=== PATIENT | female | born 1930 | race Caucasian/White ===

== ENCOUNTER 2016-04-29 02:13 | Inpatient (IN) | payer MEDICARE, MEDICAID ==
[2016-04-29 02:55] VITALS: BP 151/75
[2016-04-29] MEDS: D5-0.9%NS 1,000 ML IV SCH (03:53)
[2016-04-29] MEDS ORDERED: Morphine Sulfate 2 mg/mL 1mL Syr IVP PRN (03:54)
[2016-04-29 04:05] LABS: % BASOPHILS 0.8 % (0.0-2.0); % EOSINOPHILS 7.2 % (0.0-5.0); % LYMPHOCYTES 41.2 % (20.0-50.0); % MONOCYTES 13.3 % (2.0-10.0); % NEUTROPHILS 37.5 % (40.0-80.0); HEMATOCRIT 33.1 % (35.0-45.0); HEMOGLOBIN 11.4 gm/dL (11.7-16.1); MEAN CORPUSCULAR HGB CONC 34.4 pg (28.0-36.0); MEAN PLATELET VOLUME 7.3 fl; PLATELET COUNT 193 Th/cmm (150-400); RED BLOOD COUNT 3.68 Mil/cmm (3.80-5.20); RED CELL DISTRIBUTION WIDTH 11.1 % (11.5-20.0); WHITE BLOOD COUNT 5.3 Th/cmm (4.8-10.8)
[2016-04-29 04:36] LABS: INR 1.1 (0.5-1.4)
[2016-04-29 05:01] LABS: ALB/GLOB RATIO 1.1 (1.0-1.8); ALKALINE PHOSPHATASE 97 U/L (34-104); BUN - UREA NITROGEN 6 mg/dL (7-25); CALCIUM SERUM 8.9 mg/dL (8.6-10.3); CARBON DIOXIDE 22.8 mEq/L (21.0-31.0); CHLORIDE 89 mEq/L (98-107); CREATININE - SERUM 0.5 mg/dL (0.6-1.2); GLUCOSE 94 mg/dL (70-105); SGOT 17 U/L (13-39); SGPT/ALT 7 U/L (7-52)
[2016-04-29 05:51] LABS: POTASSIUM SERUM 2.8 mEq/L (3.5-5.1); SODIUM SERUM 118 mEq/L (136-145)
[2016-04-29] MEDS ORDERED: SODIUM CHLORIDE 0.9% IV SCH ×2 (07:30→13:30)
[2016-04-29] MEDS ORDERED: LIDOCAINE IV SCH ×2 (07:30→13:30)
[2016-04-29] MEDS ORDERED: POTASSIUM CHLORIDE IV SCH ×2 (07:30→13:30)
--- NOTE | 2016-04-29 09:58 | Diagnostic Imaging Report ---
Portable chest x-ray HISTORY: Cough, preoperative The heart is enlarged. Atherosclerotic calcification seen in the aorta. A linear density seen in the right lung base that may be associated scarring or subsegmental atelectasis. No other acute focal process IMPRESSION: 1. Cardiomegaly with atherosclerotic vascular changes 2. Faint linear density right lung base that may be associated with scarring or subsegmental atelectasis.
[2016-04-29 20:12] LABS: ANION GAP 5.6 (7.0-16.0); BUN - UREA NITROGEN 8 mg/dL (7-25); CALCIUM SERUM 8.6 mg/dL (8.6-10.3); CARBON DIOXIDE 22.5 mEq/L (21.0-31.0); CHLORIDE 95 mEq/L (98-107); CREATININE - SERUM 0.8 mg/dL (0.6-1.2); GLUCOSE 108 mg/dL (70-105); POTASSIUM SERUM 4.1 mEq/L (3.5-5.1)
[2016-04-29 20:23] LABS: SODIUM SERUM 119 mEq/L (136-145)
[2016-04-29] MEDS ORDERED: MAG SULFATE IV ONE (22:09)
--- NOTE | 2016-04-30 00:17 | Consultation ---
This patient is seen on courtesy of Dr. Shana Davalos as the patient is coming with the cardiac problem and hypertension and hypertensive heart disease. According to history obtained from the patient's daughter at the bedside that the patient has been having episodes of nausea and vomiting for almost a week. It got worse over last few couple of days and on the day of admission. On the day of admission, she was very tired, unable to walk much. As she was getting worse, so brought to the Emergency Room. She says that she has been having nausea and vomiting off and on. There was no blood, no bile in the vomitus. The patient has lost appetite and not eating at all because afraid of getting nausea and vomiting again. She went to [facility] Emergency Room, there, workups was that her electrolyte disorder consistent of hyponatremia and hypokalemia. That is why, the patient is being transferred and admitted here. The patient denies any dysuria or hematuria and no diarrhea, no fever, chills or rigor or any other headache or dizziness, but has been having some dry cough off and on. PAST HISTORY: History of the hypertension, dyslipidemia, cardiomegaly, history of CHF and anemia. PERSONAL HISTORY: She is , nonsmoker, nonalcoholic, no drug abuse. ALLERGIES: None known. MEDICATIONS: Reviewed. At the moment, her home meds since are on hold most of the time because of her condition and electrolyte disorders. PHYSICAL EXAMINATION: GENERAL: This is female who is an 85-year-old Bulgarian-speaking, not in acute distress. VITAL SIGNS: Stable and her temperature is normal, her pulse is 75, respirations is 18, blood pressure 151/75, earlier blood pressure was 110/58, O2 sat on room air is 94%. HEENT: Normal. NECK: Supple, JVP is flat, no lymphadenopathy. CHEST: Equal bilaterally. No chest wall tenderness. LUNGS: Clinically clear. CARDIOVASCULAR: PMI not palpable. Heart sounds are S1 is loud, S2 is loud. There is a systolic ejection murmur, which is 2-3/6 in the aortic area conducting towards the carotid, towards the apex. No rub is appreciated. ABDOMEN: Soft, there is tenderness present in the epigastric area. Bowel sounds are present. CENTRAL NERVOUS SYSTEM: Grossly normal. EXTREMITIES: No edema, no cyanosis, no clubbing. Pedal pulsations are equal bilaterally. IMPRESSION AND PLAN: Nausea, vomiting and the etiology undetermined at this time. Electrolyte disorder especially hyponatremia and hypokalemia most likely secondary to nausea, vomiting and taking only water, but to rule out any other underlying endocrinological disorder. Other medical problems are hypertension, which is well controlled and now is trying to get uncontrolled and her blood pressure is slightly increasing, has a history of a dyslipidemia, cardiomegaly, CHF, possible systolic as well as diastolic dysfunction, to be evaluated. Cardiac murmur suggestive of aortic as well as mitral valve disorder to be evaluated. Other medical problem as per chart. From cardiac point of view, I agree to do echocardiogram and I also suggest that we should hold Lasix, also lisinopril as the patient has dry cough, might be secondary to the lisinopril as is Mango inhibitor. I agree to hold other meds. Continue with the correction on the electrolytes and correction of the fluid balance. Check serum cortisone and TSH and also the electrolytes in the morning. Occasional correction of the hyponatremia and further workup and management as needed and from cardiac point of view, I will adjust the medications as needed. Thank you very much, Dr. Mullins, for your kind referral and I will follow along with you during her acute cardiac problem. JOB# [id number] NIELS
--- NOTE | 2016-04-30 02:47 | History & Physical ---
CHIEF COMPLAINT: Vomiting. HISTORY OF PRESENT ILLNESS: The patient is an 85-year-old female who has been transferred from [facility]. The patient had presented to [facility] for 2 weeks intermittent but not daily, nonbilious vomiting. On days she vomits, she vomits 3-4 times per day. The patient has poor appetite and generalized weakness. The patient also has dry cough and wheezing for 3 months, but no runny nose, nasal congestion, sore throat, ear pain, fever, chills, diarrhea, constipation, chest pain or shortness of breath. In addition to 2 weeks of intermittent nausea and vomiting, she has also had intermittent upper abdominal pain. No recent dysuria, hematuria, increased frequency, urgency or other complaints. PAST MEDICAL HISTORY: Hypertension, hyperlipidemia, cardiomegaly, CHF, anemia. PAST SURGICAL HISTORY: Negative. SOCIAL HISTORY: No reports of smoking, drinking or IV drug use. MEDICATIONS: See medication reconciliation form. ALLERGIES: GUAIFENESIN. PHYSICAL EXAMINATION: GENERAL: The patient is awake, alert, nontoxic in appearance. VITAL SIGNS: On admission are temperature 98.3, pulse of 75, blood pressure 151/75, respiratory rate 18, O2 sat 94% on room air. TopofForm HEENT: Normocephalic, atraumatic. Extraocular movements are intact. Oropharynx is clear. NECK: Supple. No thyromegaly. No lymphadenopathy. RESPIRATORY: Clear. No wheezing or rhonchi. CARDIOVASCULAR: S1 and S2. No murmurs or gallops. GASTROINTESTINAL: Soft, mild tenderness in the epigastric area, nondistended. Positive bowel sounds. GENITOURINARY: No CVA tenderness, no suprapubic tenderness. BACK: No midline tenderness. EXTREMITIES: Equal pulses bilaterally. No C/C/E. SKIN: Negative. PSYCHIATRIC: Negative. NEUROLOGIC: Cranial nerves 2-12 intact. Extraocular movements intact. Sensation intact. BLE equal. LABORATORY DATA: On admission, hematology, WBC of 5.3, platelet count of 193, 37% neutrophils. PT 11.0, INR 1.1. Chemistry: Sodium 118, potassium 2.8, chloride 89, bicarbonate 22, anion gap 9, BUN 6, creatinine 0.5, GFR unavailable, glucose 94, calcium 8.9, total bilirubin 1.0, AST 17, ALT 7, alk phos 97, total protein 6.2, albumin 3.2, globulin 3.0. RADIOLOGY: Chest x-ray shows cardiomegaly with atherosclerotic vascular changes. Radiologic tests from [facility], CT of the abdomen and pelvis without contrast shows small pericardial effusion, opacity in the right lung base atelectasis. Olvitkqv-ds-ccclav atherosclerotic vascular disease of the abdominal aorta branches. A 10-mm gallstone in the gallbladder neck. Diverticulosis of the descending colon, sigmoid colon; no diverticulitis. Degenerative lumbar spine. The ultrasound showed the gallbladder demonstrates single calculus. IMPRESSION: 1. Intractable nausea and vomiting. 2. Cholelithiasis. 3. Hypertension. 4. Hyperlipidemia. 5. Cardiomegaly. 6. Congestive heart failure. 7. Anemia. 8. Hyponatremia. 9. Hypokalemia. 10. Hypoalbuminemia. PLAN: The patient admitted to telemetry unit, seen by Dr. Selina Davalos. Cardiology consultation with Dr. Jermain Davalos. GI consult with Dr. Moon and associates. General Surgery consultation with Dr. Rudolph. Nephrology consultation also ordered. Obtain further labs and consultation as needed.BottomofForm JOB# [id number] NIELS
--- NOTE | 2016-04-30 04:27 | Consultation ---
HISTORY OF PRESENT ILLNESS: Surgical consultation for nausea, vomiting, failure to thrive and gallstones. Reportedly, the patient was at [facility]. The patient was evaluated for nausea and vomiting for 2 weeks. A poor appetite, generalized weakness, cough, upper respiratory infection symptoms. The patient subsequently had a CT scan, which showed atherosclerotic disease and a single gallstone in the neck of the gallbladder. The patient underwent an abdominal ultrasound, which showed a single calculus, gallbladder wall, appears normal, measures 2.49 mm, negative sonographic Florence sign. The common bile duct measures 6.94. The patient's other problems include severe hyponatremia, hypokalemia and anemia. She is a poor historian and family is not bedside, although she denies previous surgeries. She is DNR. ALLERGIES: She has allergy to guaifenesin. REVIEW OF SYSTEMS: Unable to obtain because of limited history, although she denies any abdominal pain or fevers or chills or diarrhea. PHYSICAL EXAMINATION: GENERAL: She is afebrile. She is awake, alert and oriented x 3. VITAL SIGNS: Otherwise stable. She is 49 kg. BMI is 20.6. HEENT AND NECK: Within normal limits. CHEST: Clear to auscultation bilaterally. CARDIOVASCULAR: Regular rhythm, rate. No murmurs, rubs or gallops. S1, S2 is normal. ABDOMEN: Soft, nontender, nondistended. There is no Florence sign. She has no abdominal masses. She has no inguinal or ventral hernias. NEUROVASCULAR AND EXTREMITIES: Otherwise, normal. LABORATORY DATA: Her white blood cell count is 5.3, H and H 11 and 33. Sodium is 118, potassium 2.8, chloride is 89, BUN and creatinine is 6 and 0.5. Her liver function tests are normal. Albumin 3.2. No imaging tests done here in this hospital. IMPRESSION AND PLAN: The patient is an 85-year-old female, has multiple medical problems including nausea and vomiting, failure to thrive, cachectic. She is anemic. She has severe hyponatremia, hypokalemia and she has malnutrition as well too. She does have a single gallstone in her gallbladder seen on CT scan and ultrasound, although there is no other neoplastic process or small-bowel obstruction seen on CAT scan. She is a poor surgical candidate for elective laparoscopic cholecystectomy. Ongoing tests have been ordered including a HIDA scan, although she has no obvious signs of sepsis. She has no abdominal pain. She is nontender and she has no leukocytosis or fever. Liver function tests are normal. A gallstone is probably an incidental finding, would probably recommend conservative management unless something very abnormal seen on the HIDA scan. Agree with a GI followup and will follow up on the EGD results by GI. [facility]# [id number]
[2016-04-30] MEDS: D5-0.9%NS 1,000 ML IV SCH (06:10)
--- NOTE | 2016-04-30 07:26 | Consultation ---
ATTENDING PHYSICIAN: Dr. Harpreet Davalos. TERRAZZO MECHANIC: Dr. Mirza Trotter. REASON FOR CONSULTATION: Electrolyte imbalance and fluid management. HISTORY OF PRESENT ILLNESS: This is an 85-year-old female with past medical history of hypertension who was transferred from [place] to [facility] for further management of nausea and vomiting as well as electrolyte imbalance. Three months prior to admission, the patient developed dry cough, which occasionally became persistent. Two days prior to admission, she developed nausea and vomiting. She vomited 3-4 times per day. Her vomitus was green and yellow. A few hours prior to admission, she became quite weak. She was not able to tolerate anything orally for the previous 2 days. She was then brought to [place]. Her white count was 5.1. Abdominal ultrasound revealed gall bladder with single calculus. CT scan of the abdomen and pelvis showed 10-mm gallbladder stone at the gallbladder neck. Chest x-ray showed a 3.8 cm right lower lobe mass versus consolidation versus vascular shadow. Her LFTs were within normal limits. Her sodium was 120 with a potassium of 2.8, but BUN/creatinine were 6/0.4. Her sodium/potassium here at [place] were 118/2.8. She had no history of diarrhea, abdominal pain or cramping and no dysuria. PAST MEDICAL HISTORY: 1. Essential hypertension. 2. Dyslipidemia. 3. Cardiomyopathy. 4. History of CHF. 5. Anemia of chronic disease. Chest x-ray showed right lung linear density suggestive of a scar or subsegmental atelectasis. LABORATORY DATA: Her electrolytes: Sodium is 118, potassium 2.8, chloride 89, bicarbonate 22, BUN 6, creatinine 0.5, glucose 94, calcium 8.9, white count is ____, hemoglobin 11.4, hematocrit 33.1, polys 77.5% and platelets 793. Albumin is 3.2. CURRENT MEDICATIONS: She is currently on acetaminophen, famotidine, potassium, lorazepam, morphine and Zofran. ALLERGIES: Guaifenesin. SOCIAL HISTORY: No history of alcohol or tobacco abuse. 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 FAMILY HISTORY: Noncontributory to present illness. REVIEW OF SYSTEMS: GENERAL: She did complain of weakness because of her persistent nausea and vomiting. Appetite had also deteriorated. HEENT: Denied any headaches. No dizziness. Vision as well as hearing acuity has diminished due to age. CARDIORESPIRATORY: She has a history of cardiomyopathy, essential hypertension as well as CHF. She did have dry cough. However, there was no chest pain or palpitations nor diaphoreses or even shortness of breath. GASTROINTESTINAL: She came in because of persistent nausea and vomiting. No abdominal pain or cramping, hematemesis, melena, hematochezia and no diarrhea. ENDOCRINE: No history of diabetes or thyroid abnormalities, but has dyslipidemia. GENITOURINARY: No history of kidney failure; however, she has electrolyte imbalance. No dysuria nor hematuria. HEMATOLOGIC: She has mild anemia. NEUROPSYCHIATRIC: No syncopal episode nor seizure activity. PHYSICAL EXAMINATION: NEUROLOGIC: The patient is alert, verbal and comfortable. VITAL SIGNS: Blood pressure is 110/58, pulse 72 and temperature 96.5 degrees. SKIN: Good turgor, warm. No rash and no jaundice appreciated. HEENT: Head normocephalic and atraumatic. Eyes: Extraocular muscles are intact. Pupils equal, round, reactive to light and accommodates. Anicteric sclerae. Santel conjunctivae. Nose: Midline nasal septum. Mouth: Moist mucosa with adequate dentition. NECK: Supple. No adenopathy, no thyromegaly and no bruits. Trachea palpated in the midline. CHEST AND CVS: S1 and S2. No rub, murmur nor gallop appreciated. Point of maximal impulse fifth intercostal space, left midclavicular line. No abdominal or femoral bruits appreciated. LUNGS: Equal expansion. No use of accessory muscles. No supraclavicular retractions Decreased breath sounds, but clear to auscultation without any wheeze. BREASTS: Symmetrical without any discharge. ABDOMEN: Flat, soft, positive for bowel sounds. No tenderness, no bruits either diastolic or systolic. RECTAL: The patient refused. GENITOURINARY: Normal appearing female genitalia. MUSCULOSKELETAL: No effusions present in her joints with limited range of motion. EXTREMITIES: No evidence of edema, cyanosis nor clubbing with palpable femoral, popliteal and dorsalis pedis pulses. NEUROLOGIC: The patient is alert and verbal. Motor is 5/5. Cranial nerves 3-12 intact. Sensory intact. IMPRESSION: 1. Hyponatremia with hypokalemia likely secondary to persistent nausea and vomiting. However, we also need to consider the fact that she has been on furosemide which could also cause renal loss of both sodium loss well as potassium. 2. Right lower lobe mass versus consolidation versus scar versus subsegmental atelectasis. 3. Hyponatremia, possible SIADH due to questionable right lower lobe mass. 4. Moderate malnutrition. 5. Dry cough, possibly due to KADEEM inhibitor in the form of lisinopril. 6. Essential hypertension. 7. Dyslipidemia. 8. Cardiomyopathy. 9. History of CHF. 10. Mild anemia. PLAN: 1. Continue on with electrolytes and follow levels tonight. 2. Continue with normal saline IV fluid. 3. Discontinue Lasix and lisinopril. 4. Urinalysis, urine sodium and osmolality. 5. Serum uric acid and osmolality. 6. Amylase and lipase. Thank you, Dr. Davalos for this consult. I will follow the patient closely with you. [facility]# [id number]
[2016-04-30 07:37] LABS: % BASOPHILS 0.8 % (0.0-2.0); % EOSINOPHILS 5.4 % (0.0-5.0); % LYMPHOCYTES 40.2 % (20.0-50.0); % MONOCYTES 13.7 % (2.0-10.0); % NEUTROPHILS 39.9 % (40.0-80.0); HEMATOCRIT 31.3 % (35.0-45.0); HEMOGLOBIN 10.8 gm/dL (11.7-16.1); MEAN CORPUSCULAR HGB CONC 34.4 pg (28.0-36.0); MEAN PLATELET VOLUME 7.9 fl; NEUTROPHILE ABSOLUTE 1.8 Th/cmm (1.8-8.0); PLATELET COUNT 189 Th/cmm (150-400); RED BLOOD COUNT 3.48 Mil/cmm (3.80-5.20); RED CELL DISTRIBUTION WIDTH 11.4 % (11.5-20.0); WHITE BLOOD COUNT 4.5 Th/cmm (4.8-10.8)
[2016-04-30 07:59] LABS: ANION GAP 5.5 (7.0-16.0); BUN - UREA NITROGEN 9 mg/dL (7-25); CALCIUM SERUM 8.8 mg/dL (8.6-10.3); CHLORIDE 98 mEq/L (98-107); CREATININE - SERUM 0.6 mg/dL (0.6-1.2); GLUCOSE 93 mg/dL (70-105); POTASSIUM SERUM 3.5 mEq/L (3.5-5.1); SODIUM SERUM 123 mEq/L (136-145)
--- NOTE | 2016-04-30 14:53 | Diagnostic Imaging Report ---
Abdominal ultrasound HISTORY: Pain The liver exhibits a homogeneous parenchyma. No focal lesions. The exam of the gallbladder demonstrates intraluminal echogenic densities within the gallbladder neck region consistent with cholelithiasis. No biliary dilatation. The pancreas cannot be seen due to bowel gas. Right kidney appears normal. The left kidney is decreased in size (8.3 cm length). No hydronephrosis. No other retroperitoneal or intra-abdominal abnormalities. IMPRESSION: 1. Findings consistent with cholelithiasis 2. Somewhat diminished size of the right kidney.
[2016-04-30 16:31] LABS: ANION GAP 5.9 (7.0-16.0); BUN - UREA NITROGEN 7 mg/dL (7-25); CALCIUM SERUM 8.8 mg/dL (8.6-10.3); CARBON DIOXIDE 23.6 mEq/L (21.0-31.0); CHLORIDE 99 mEq/L (98-107); CREATININE - SERUM 0.5 mg/dL (0.6-1.2); GLUCOSE 112 mg/dL (70-105); POTASSIUM SERUM 3.5 mEq/L (3.5-5.1); SODIUM SERUM 125 mEq/L (136-145)
--- NOTE | 2016-04-30 16:35 | Diagnostic Imaging Report ---
Radionuclide biliary scan (HIDA scan) HISTORY: Pain 5.0 mCi technetium labeled biliary age and was using the exam. There is normal hepatic uptake and clearance. There is excretion into the gallbladder, common bile duct, and small bowel. IMPRESSION: Normal examination
--- NOTE | 2016-04-30 17:52 | Admit Criteria Form ---
Admit Criteria Forms - Admit Criteria Diagnosis: VOMITING Clinical Indications for Admission to Inpatient Care ( Place 'X' for any and all applicable criteria): Admission is indicated for ANY ONE of the following(1)(2)(3): [X]I. Inpatient admission required rather than observation care because of ANY ONE of the following: [ ]i) Hemodynamic instability that is severe or persistent [X]ii) Vomiting that is severe or persistent [ ]iii) Severe electrolyte abnormalities requiring inpatient care [ ]iv) Severe pain requiring acute inpatient management [ ]v) High fever or infection requiring inpatient admission as indicated by ANY ONE of the following(7)(8): [ ]1) Appropriate outpatient or observation care antimicrobial treatment unavailable, not effective, or not feasible [ ]2) Documented bacteremia [ ]3) Temp >104.9 degrees F (40.5 degrees C) (oral) [ ]4) Temp >103.1 degrees F (39.5 C) (oral) or <96.8 degrees F (36 C) (rectal) that does not respond to all emergency treatment measures [ ]vi) Acute renal failure [ ]vii) IV fluid to replace significant ongoing losses (greater than 3 L/m2 per day) [ ]viii) Parenteral nutrition regimen that must be implemented on inpatient basis [ ]ix) Other condition, treatment or monitoring requiring inpatient admission [ ]II. Complete or partial gastrointestinal obstruction [ ]III. Other cause of vomiting requiring hospitalization (eg, poisoning, increased intracranial pressure) [ ]IV. Vomiting due to significant metabolic derangement (eg, severe hypercalcemia, diabetic ketoacidosis) Extended stay beyond goal length of stay may be needed for(1)(4): [ ]a) Severe vomiting [ ]b) Persistent vomiting, vital sign changes, severe electrolyte imbalance , or diagnosed cause of vomiting that requires continued hospitalization (eg, gastrointestinal obstruction , increased intracranial pressure) [ ]c) Surgery to treat identified causes of vomiting (eg, bowel obstruction , intracranial process) [ ]d) Comorbid illness that requires inpatient care (eg, acute heart failure , renal failure) [ ]e) Need for inpatient endoscopy The original [facility] content created by Lexi Monae has been revised. The portions of the content which have been revised are identified through the use of italic text or in bold, and Lexi Monae has neither reviewed nor approved the modified material. All other unmodified content is copyright [facility]. Please see references footnoted in the original [facility] edition 2016 Admit Criteria Met?: Yes
[2016-04-30] MEDS ORDERED: Promethazine DM 6.25/15mg-5mL 5 ML SYR PO PRN (20:44)
--- NOTE | 2016-04-30 20:59 | General Progress Note ---
Subjective - Review of Systems Service Date: 04/30/16 Subjective: GETTING HIDA. EVENTS NOTED. Objective - Results Result Diagrams: 04/30/16 05:50 04/30/16 16:05 Recent Labs: Laboratory Last Values WBC 4.5 Th/cmm (4.8-10.8) L 04/30/16 05:50 RBC 3.48 Mil/cmm (3.80-5.20) L 04/30/16 05:50 Hgb 10.8 gm/dL (11.7-16.1) L 04/30/16 05:50 Hct 31.3 % (35.0-45.0) L 04/30/16 05:50 MCV 90.0 fl (81-100) 04/30/16 05:50 MCH 31.0 pg (27.0-31.0) 04/30/16 05:50 MCHC Differential 34.4 pg (28.0-36.0) 04/30/16 05:50 RDW 11.4 % (11.5-20.0) L 04/30/16 05:50 Plt Count 189 Th/cmm (150-400) 04/30/16 05:50 MPV 7.9 fl 04/30/16 05:50 Neutrophils % 39.9 % (40.0-80.0) L 04/30/16 05:50 Lymphocytes % 40.2 % (20.0-50.0) 04/30/16 05:50 Monocytes % 13.7 % (2.0-10.0) H 04/30/16 05:50 Eosinophils % 5.4 % (0.0-5.0) H 04/30/16 05:50 Basophils % 0.8 % (0.0-2.0) 04/30/16 05:50 PT 11.0 SECONDS (9.5-11.5) 04/29/16 03:50 INR 1.10 (0.5-1.4) 04/29/16 03:50 Sodium 125 mEq/L (136-145) L 04/30/16 16:05 Potassium 3.5 mEq/L (3.5-5.1) 04/30/16 16:05 Chloride 99 mEq/L (98-107) 04/30/16 16:05 Carbon Dioxide 23.6 mEq/L (21.0-31.0) 04/30/16 16:05 Anion Gap 5.9 (7.0-16.0) L 04/30/16 16:05 BUN 7 mg/dL (7-25) 04/30/16 16:05 Creatinine 0.5 mg/dL (0.6-1.2) L 04/30/16 16:05 Est GFR ( Amer) TNP 04/30/16 16:05 Est GFR (Non-Af Amer) TNP 04/30/16 16:05 BUN/Creatinine Ratio 14.0 04/30/16 16:05 Glucose 112 mg/dL (70-105) H 04/30/16 16:05 Uric Acid 3.0 mg/dL (2.3-6.6) 04/30/16 05:50 Calcium 8.8 mg/dL (8.6-10.3) 04/30/16 16:05 Magnesium 2.2 mg/dL (1.9-2.7) 04/30/16 05:50 Total Bilirubin 1.0 mg/dL (0.3-1.0) 04/29/16 03:50 AST 17 U/L (13-39) 04/29/16 03:50 ALT 7 U/L (7-52) 04/29/16 03:50 Alkaline Phosphatase 97 U/L (34-104) 04/29/16 03:50 Total Protein 6.2 gm/dL (6.0-8.3) 04/29/16 03:50 Albumin 3.2 gm/dL (3.7-5.3) L 04/29/16 03:50 Globulin 3.0 gm/dL 04/29/16 03:50 Albumin/Globulin Ratio 1.1 (1.0-1.8) 04/29/16 03:50 Amylase 51 U/L (29-103) 04/29/16 20:00 Lipase 32 U/L (11-82) 04/29/16 20:00 - Physical Exam Vitals and I&O: Vital Signs Temp 97.8 F 04/30/16 16:36 Pulse 66 04/30/16 16:36 Resp 18 04/30/16 16:36 BP 120/62 04/30/16 16:36 Pulse Ox 96 04/30/16 16:36 Intake & Output 04/30/16 04/30/16 05/01/16 06:59 18:59 06:59 Intake Total 100 800 Balance 100 800 Intake: Oral 100 800 Other: # Voids 2 4 # Bowel Movements 0 1 Stool Characteristics Soft Active Medications: Current Medications Acetaminophen (Tylenol 650mg Supp) 650 mg RC Q6H PRN PRN Reason: Mild Pain/Headache/T above 101 Stop: 06/28/16 03:53 Famotidine (Pepcid) 20 mg IVP Q12HR [facility] Stop: 06/28/16 08:59 Last Admin: 04/30/16 20:50 Dose: 20 mg Dextrose/Sodium Chloride (D5-0.9%Ns) 1,000 mls @ 100 mls/hr IV .Q10H [facility] Stop: 06/28/16 03:44 Last Admin: 04/30/16 06:10 Dose: 100 mls/hr Lorazepam (Ativan) 1 mg IVP Q4H PRN; Protocol PRN Reason: Anxiety/Agitation Stop: 06/28/16 03:53 Morphine Sulfate (Morphine) 2 mg IVP Q4H PRN PRN Reason: Severe Pain Stop: 06/28/16 03:53 Ondansetron HCl (Zofran) 4 mg IVP Q6H PRN PRN Reason: Nausea / Vomiting Stop: 06/28/16 03:53 Potassium Chloride (Klor-Con) 20 meq PO DAILY [facility] Stop: 06/30/16 08:59 Promethazine HCl/Dextromethorphan (Phenergan Dm 6.25/15mg-5 Ml) 5 ml PO Q6HR PRN PRN Reason: Cough Stop: 06/29/16 20:43 General: No acute distress HEENT: Atraumatic Neck: Supple Cardiovascular: Regular rate Lungs: Clear to auscultation Abdomen: Bowel sounds, Soft, no Tender Assessment/Plan - Assessment Assessment: 1. N/V - R/O GERD VS. GASTRITIS VS. PUD VS. GS VS. SBO/ILEUS VS. OTHER. 2. GS, DOUBT SYMPTOMATIC. 3. MILD ANEMIA. 4. HYPONATREMIA. - Plan Plan: 1. AWAIT HIDA. 2. WILL CHECK EGD TOMORROW AFTER HYPONATREMIA BETTER. 3. PROTONIX. 4. ANTIEMETICS.
--- NOTE | 2016-04-30 21:29 | Consultation ---
REQUESTING PHYSICIAN: Harpreet Davalos M.D. REASON FOR CONSULTATION: Nausea and vomiting. HISTORY OF PRESENT ILLNESS: An 85-year-old female with a 2-week history of intermittent nausea and vomiting and failure to thrive. She had dehydration. She presented to an outside hospital and was transferred here for further care. She had a low sodium of 118 on admission. She had imaging that suggested cholelithiasis. We were asked to evaluate the patient for her nausea and vomiting. PAST MEDICAL HISTORY: As above, also notable for hypertension, hyperlipidemia, cardiomegaly, CHF, anemia. MEDICATIONS: Tylenol, IV fluids with normal saline, Pepcid, Ativan, morphine, Zofran, potassium, and Phenergan p.r.n. ALLERGIES: GUAIFENESIN. SOCIAL HISTORY: No recent tobacco, alcohol, or drugs. FAMILY HISTORY: Noncontributory. REVIEW OF SYSTEMS: A comprehensive 12-point review of systems was conducted and is only positive for those signs and symptoms present in the history of present illness. PHYSICAL EXAMINATION: VITAL SIGNS: Temperature 98.8, blood pressure 131/71, pulse of 72, respirations 20, O2 sat is 96%. GENERAL: The patient is well-developed, well-nourished female in no acute distress. HEENT: Sclerae are anicteric. Oropharynx is clear. CARDIOVASCULAR: Regular rate and rhythm. LUNGS: With occasional rhonchi at the bases. ABDOMEN: Soft, nontender, slightly distended. Normoactive bowel sounds. EXTREMITIES: No clubbing, cyanosis or edema. RECTAL: Deferred. LABORATORY DATA AND IMAGING: On admission, WBC 5.3, hemoglobin 11.4, platelet count 193. Sodium 123, creatinine 0.5. Liver enzymes normal, lipase normal. Imaging suggested cholelithiasis, otherwise no acute process. ASSESSMENT: 1. Nausea and vomiting. Rule out gastroesophageal reflux disease, gastritis, peptic ulcer disease, also could be from symptomatic gallstones or bowel obstruction or enteritis or colitis. 2. Hyponatremia, likely from nausea and vomiting. 3. Mild anemia. 4. Hypertension and hyperlipidemia. 5. Altered level of consciousness, now improved. RECOMMENDATIONS: 1. Monitor sodium level and correct as per hospitalist. 2. Antiemetics. 3. Antacids. 4. Consider upper endoscopy once nausea and vomiting are improved. 5. Check HIDA scan. 6. Surgical evaluation for history of gallstones. Thank you Dr. Harpreet Davalos for involving us in the care of your patient. If you have any further questions, please call us. JOB# [id number]
--- NOTE | 2016-05-01 05:02 | Progress Notes ---
SURGICAL PROGRESS NOTE: SUBJECTIVE: The patient is resting comfortably in bed, sleeping. Family is at bedside. Reportedly, she denies any abdominal pain. She is tolerating her oral diet well. PHYSICAL EXAMINATION: VITAL SIGNS: She is afebrile. Her vital signs are otherwise stable. HEENT AND NECK: Within normal limits. CHEST: Clear to auscultation bilaterally. There are no crackles, rales, rhonchi or wheezing. HEART: Regular rhythm and rate. No murmurs, rubs or gallops. S1, S2 are normal. ABDOMEN: Soft, nontender, nondistended. NEUROVASCULAR: Otherwise normal. LABORATORY DATA: Today, white blood cell count 4.5, hemoglobin is 10.8 and hematocrit is 31, platelet count 189. She still has hyponatremia 125, anion gap is 5.9, glucose 112. Dr. Merchant of has seen the patient. According to his progress note, he is planning an EGD. HIDA scan has been ordered. The patient is on Protonix and antiemetics at this time. The liver function tests were not repeated today, although they were normal yesterday. The HIDA scan was performed on 04/30/2016, today, showing a normal examination. IMPRESSION/PLAN: The patient has improved nausea and vomiting with no further episodes today. GI is currently following the patient and has planned now for EGD possibly tomorrow if the patient is medically stable. The patient still has hyponatremia and GI is waiting for this to be corrected prior to the procedure. The patient does have cholelithiasis; however, I do not believe that this is the source of the patient's nausea, vomiting and GI issues, the liver function tests are normal, HIDA scan is negative for cystic duct obstruction. We will follow. JOB# [id number]
[2016-05-01] MEDS: D5-0.9%NS 1,000 ML IV SCH (05:41)
[2016-05-01 06:55] LABS: HEMATOCRIT 31.3 % (35.0-45.0); HEMOGLOBIN 10.9 gm/dL (11.7-16.1); MEAN CELL VOLUME 90.1 fl (81-100); MEAN CORPUSCULAR HEMOGLOBIN 31.3 pg (27.0-31.0); MEAN CORPUSCULAR HGB CONC 34.8 pg (28.0-36.0); MEAN PLATELET VOLUME 7.7 fl; PLATELET COUNT 188 Th/cmm (150-400); RED BLOOD COUNT 3.47 Mil/cmm (3.80-5.20); RED CELL DISTRIBUTION WIDTH 11.2 % (11.5-20.0); WHITE BLOOD COUNT 5.1 Th/cmm (4.8-10.8)
[2016-05-01 07:15] LABS: INR 1.09 (0.5-1.4); PROTHROMBIN TIME (TEST) 10.9 SECONDS (9.5-11.5)
[2016-05-01 07:31] LABS: ANION GAP 1.8 (7.0-16.0); BUN - UREA NITROGEN 8 mg/dL (7-25); CALCIUM SERUM 8.8 mg/dL (8.6-10.3); CARBON DIOXIDE 23.4 mEq/L (21.0-31.0); CHLORIDE 100 mEq/L (98-107); CREATININE - SERUM 0.5 mg/dL (0.6-1.2); GLUCOSE 101 mg/dL (70-105); POTASSIUM SERUM 3.2 mEq/L (3.5-5.1); SODIUM SERUM 122 mEq/L (136-145)
[2016-05-01] MEDS: Potassium Chloride 20 mEq ER Tab PO SCH ×2 (08:40→15:12)
[2016-05-01 09:55] LABS: BAND NEUTROPHILE 1 % (0-10); BASOPHIL 2 % (0-3); EOSINOPHIL 7 % (0-5); NEUTROPHILS 45 % (40-80); PLATELET ESTIMATE ADEQUATE (NORMAL); PLATELET MORPHOLOGY GIANT PLATELETS SEEN (NORMAL); TOTAL CELLS COUNTED 100
[2016-05-01] MEDS ORDERED: Lactated Ringer 1,000 ML IV SCH (12:45)
--- NOTE | 2016-05-01 14:11 | Operative Report ---
PROCEDURE: Esophagogastroduodenoscopy with biopsy. PREPROCEDURE DIAGNOSES: Nausea and vomiting. POSTPROCEDURE DIAGNOSES: 1. Mild gastritis, status post biopsy and CLOtest. 2. Normal esophagus. 3. Normal duodenum. INDICATION: An 85-year-old female with nausea and vomiting and hyponatremia undergoing an upper endoscopy for further evaluation. CONSENT: Informed consent was obtained from the patient's family prior to procedure after detailed explanation of risks, benefits and alternatives including but not limited to infection, perforation and . SEDATION: Monitored anesthesia care per Dr. White. DESCRIPTION OF PROCEDURE AND FINDINGS: The procedure took placed as an inpatient in the GI Suite of [facility]. The patient was kept in a lithotomy position. Adequate sedation was achieved with above medications. An Olympus diagnostic upper endoscope was advanced through the patient's mouth and in the esophagus. The esophagus appeared normal with the Z line normal appearing at 37 cm from the gums. Retroflexion stomach revealed no GE junction masses or varices. No hiatal hernia was identified. Mild gastritis identified in the antrum. Biopsy obtained from antrum and midbody submitted for CLOtest as well as pathology. The pyloric channel and duodenum up to second portion appeared normal. The scope was withdrawn. The patient tolerated the procedure well, no complications anticipated. RECOMMENDATIONS: 1. Follow up biopsy results. 2. Protonix. 3. Antiemetics as needed. 4. Advance diet as tolerated. 5. Correction of hyponatremia as per Nephrology. Thank you, Dr. Harpreet Davalos for involving us in the care of your patient. If you have any further questions, please call us. JOB# [id number] [facility]ITAL[facility]
[2016-05-01] MEDS ORDERED: D5-0.9%NS 1,000 ML IV SCH (14:15)
[2016-05-01] MEDS ORDERED: Sodium Chloride 3% 500 ML IV ONE (14:16)
[2016-05-01 21:46] LABS: ANION GAP 3.8 (7.0-16.0); BUN - UREA NITROGEN 6 mg/dL (7-25); CALCIUM SERUM 8.2 mg/dL (8.6-10.3); CHLORIDE 98 mEq/L (98-107); CREATININE - SERUM 0.5 mg/dL (0.6-1.2); GLUCOSE 99 mg/dL (70-105); POTASSIUM SERUM 3.8 mEq/L (3.5-5.1); SODIUM SERUM 122 mEq/L (136-145)
--- NOTE | 2016-05-01 22:23 | Progress Notes ---
SUBJECTIVE: The patient is awake and alert. The patient is on IV fluids. Per family, the patient is tolerating p.o. intake. PHYSICAL EXAMINATION: VITAL SIGNS: Temperature 97.8, pulse 56, blood pressure 120/62, respiratory rate 18, and O2 of 96% on room air. GENERAL: The patient is awake and alert. CARDIOVASCULAR: S1 and S2. RESPIRATORY: Clear. GASTROINTESTINAL: Soft, nontender, and nondistended. Positive bowel sounds. LABORATORY DATA: Hematology: WBC 4.5, hemoglobin 10.8, hematocrit 31.3, platelet count of ____, 39% neutrophils, 50% monocytes, and 5% eosinophils. Chemistry: Sodium 125, potassium 3.5, chloride 99, bicarb 23, anion gap 5.9, BUN 7, creatinine 0.5, glucose 112, and calcium 8.8. Microbiology: MRSA screen from 04/29/2016 is negative. Blood culture from 04/29/2016 shows no growth. HIDA scan from 04/30/2016 shows ____ examination. ASSESSMENT: 1. Intractable nausea and vomiting (resolved). 2. Cholelithiasis. 3. Hypertension. 4. Hyperlipidemia. 5. Cardiomegaly. 6. Congestive heart failure. 7. Hyponatremia (improved). 8. Hypokalemia (resolved). 9. Hyperglycemia. PLAN: Continue current medication. Obtain labs in a.m. Further recommendation per consult. JOB# [id number]
[2016-05-01 22:41] LABS: URINE BILIRUBIN NEGATIVE (NEGATIVE); URINE BLOOD NEGATIVE (NEGATIVE); URINE COLOR YELLOW; URINE GLUCOSE (UA) NEGATIVE (NEGATIVE); URINE KETONE NEGATIVE (NEGATIVE); URINE PROTEIN NEGATIVE (NEGATIVE)
[2016-05-01 22:42] LABS: URINE BACTERIA OCCASIONAL /hpf (NONE SEEN); URINE EPITHELIAL CELLS OCCASIONAL /lpf (FEW); URINE RBC 0-2 /hpf (0-5); URINE WBC 0-2 /hpf (0-5)
[2016-05-02 07:22] LABS: ANION GAP 6.6 (7.0-16.0); BUN - UREA NITROGEN 5 mg/dL (7-25); CALCIUM SERUM 8.4 mg/dL (8.6-10.3); CARBON DIOXIDE 24.1 mEq/L (21.0-31.0); CHLORIDE 99 mEq/L (98-107); CREATININE - SERUM 0.5 mg/dL (0.6-1.2); GLUCOSE 86 mg/dL (70-105); MAGNESIUM 1.4 mg/dL (1.9-2.7); POTASSIUM SERUM 3.7 mEq/L (3.5-5.1); SODIUM SERUM 126 mEq/L (136-145)
[2016-05-02] MEDS: Potassium Chloride 20 mEq ER Tab PO SCH (08:56)
--- NOTE | 2016-05-02 11:58 | Pathology Report ---
[id number] Collection date: 05/01/2016 Surgeon: Dr. Alan Merchant Specimen Description: Antrum biopsy. Gross Description: Received in formalin are two dunham soft tissue fragments ranging from 0.2 to 0.3 cm in greatest dimension. Totally submitted in one cassette. Microscopic Description: The histologic sections show gastric mucosa with chronic inflammation present consisting of increased numbers of lymphocytes and plasma cells. The Giemsa stain shows no evidence for Helicobacter pylori. Diagnosis: 1. Chronic gastritis, antrum biopsy. 2. The Giemsa stain is negative for Helicobacter pylori. [facility]# [id number] [facility]
--- NOTE | 2016-05-02 15:05 | General Progress Note ---
Subjective - Review of Systems Service Date: 05/02/16 Subjective: alert, poor appetite, no N/V. diarrhea Objective - Results Result Diagrams: 05/01/16 06:00 05/02/16 06:18 Recent Labs: Laboratory Last Values WBC 5.1 Th/cmm (4.8-10.8) 05/01/16 06:00 RBC 3.47 Mil/cmm (3.80-5.20) L 05/01/16 06:00 Hgb 10.9 gm/dL (11.7-16.1) L 05/01/16 06:00 Hct 31.3 % (35.0-45.0) L 05/01/16 06:00 MCV 90.1 fl (81-100) 05/01/16 06:00 MCH 31.3 pg (27.0-31.0) H 05/01/16 06:00 MCHC Differential 34.8 pg (28.0-36.0) 05/01/16 06:00 RDW 11.2 % (11.5-20.0) L 05/01/16 06:00 Plt Count 188 Th/cmm (150-400) 05/01/16 06:00 MPV 7.7 fl 05/01/16 06:00 Neutrophils % 39.9 % (40.0-80.0) L 04/30/16 05:50 Band Neutrophils % 1 % (0-10) 05/01/16 06:00 Lymphocytes % 40.2 % (20.0-50.0) 04/30/16 05:50 Monocytes % 13.7 % (2.0-10.0) H 04/30/16 05:50 Eosinophils % 5.4 % (0.0-5.0) H 04/30/16 05:50 Basophils % 0.8 % (0.0-2.0) 04/30/16 05:50 Neutrophils (Manual) 45 % (40-80) 05/01/16 06:00 Lymphocytes 36 % (20-50) 05/01/16 06:00 Monocytes 8 % (2-10) 05/01/16 06:00 Eosinophils 7 % (0-5) H 05/01/16 06:00 Basophils 2 % (0-3) 05/01/16 06:00 Atypical Lymphocytes 1 % 05/01/16 06:00 Platelet Estimate ADEQUATE (NORMAL) 05/01/16 06:00 Platelet Morphology GIANT PLATELETS SEEN (NORMAL) 05/01/16 06:00 RBC Morph Micro Appear NORMAL (NORMAL) 05/01/16 06:00 PT 10.9 SECONDS (9.5-11.5) 05/01/16 06:00 INR 1.09 (0.5-1.4) 05/01/16 06:00 PTT (Actin FS) 31.4 SECONDS (26.0-38.0) 05/01/16 06:00 Sodium 126 mEq/L (136-145) L 05/02/16 06:18 Potassium 3.7 mEq/L (3.5-5.1) 05/02/16 06:18 Chloride 99 mEq/L (98-107) 05/02/16 06:18 Carbon Dioxide 24.1 mEq/L (21.0-31.0) 05/02/16 06:18 Anion Gap 6.6 (7.0-16.0) L 05/02/16 06:18 BUN 5 mg/dL (7-25) L 05/02/16 06:18 Creatinine 0.5 mg/dL (0.6-1.2) L 05/02/16 06:18 Est GFR ( Amer) TNP 05/02/16 06:18 Est GFR (Non-Af Amer) TNP 05/02/16 06:18 BUN/Creatinine Ratio 10.0 05/02/16 06:18 Glucose 86 mg/dL (70-105) 05/02/16 06:18 Uric Acid 3.0 mg/dL (2.3-6.6) 04/30/16 05:50 Calcium 8.4 mg/dL (8.6-10.3) L 05/02/16 06:18 Magnesium 1.4 mg/dL (1.9-2.7) L 05/02/16 06:18 Total Bilirubin 1.0 mg/dL (0.3-1.0) 04/29/16 03:50 AST 17 U/L (13-39) 04/29/16 03:50 ALT 7 U/L (7-52) 04/29/16 03:50 Alkaline Phosphatase 97 U/L (34-104) 04/29/16 03:50 Total Protein 6.2 gm/dL (6.0-8.3) 04/29/16 03:50 Albumin 3.2 gm/dL (3.7-5.3) L 04/29/16 03:50 Globulin 3.0 gm/dL 04/29/16 03:50 Albumin/Globulin Ratio 1.1 (1.0-1.8) 04/29/16 03:50 Amylase 51 U/L (29-103) 04/29/16 20:00 Lipase 32 U/L (11-82) 04/29/16 20:00 Urine Source CATH 05/01/16 21:10 Urine Color YELLOW 05/01/16 21:10 Urine Clarity CLEAR (CLEAR) 05/01/16 21:10 Urine pH 7.0 05/01/16 21:10 Ur Specific [place] 1.020 (1.005-1.030) 05/01/16 21:10 Urine Protein NEGATIVE mg/dL (NEGATIVE) 05/01/16 21:10 Urine Glucose (UA) NEGATIVE mg/dL (NEGATIVE) 05/01/16 21:10 Urine Ketones NEGATIVE mg/dL (NEGATIVE) 05/01/16 21:10 Urine Blood NEGATIVE (NEGATIVE) 05/01/16 21:10 Urine Nitrate NEGATIVE (NEGATIVE) 05/01/16 21:10 Urine Bilirubin NEGATIVE (NEGATIVE) 05/01/16 21:10 Urine Urobilinogen 4.0 E.U./dL (0.2 - 1.0) H 05/01/16 21:10 Ur Leukocyte Esterase NEGATIVE (NEGATIVE) 05/01/16 21:10 Urine RBC 0-2 /hpf (0-5) 05/01/16 21:10 Urine WBC 0-2 /hpf (0-5) 05/01/16 21:10 Ur Epithelial Cells OCCASIONAL /lpf (FEW) 05/01/16 21:10 Urine Bacteria OCCASIONAL /hpf (NONE SEEN) 05/01/16 21:10 Urine Osmolality 580 mOsmol/kg 04/30/16 20:30 Ur Random Sodium 190 mmol/L 05/01/16 21:10 - Physical Exam Vitals and I&O: Vital Signs Temp 98.1 F 05/02/16 12:00 Pulse 78 05/02/16 12:00 Resp 18 05/02/16 12:00 BP 132/69 05/02/16 12:00 Pulse Ox 98 05/02/16 12:00 Intake & Output 05/01/16 05/02/16 05/02/16 18:59 06:59 18:59 Intake Total 500 250 Balance 500 250 Intake: Oral 500 250 Other: # Voids 4 2 # Bowel Movements 1 Stool Characteristics Soft Soft Active Medications: Current Medications Acetaminophen (Tylenol 650mg Supp) 650 mg RC Q6H PRN PRN Reason: Mild Pain/Headache/T above 101 Stop: 06/28/16 03:53 Famotidine (Pepcid) 20 mg IVP Q12HR JUVENTINO Stop: 06/28/16 08:59 Last Admin: 05/02/16 08:56 Dose: 20 mg Dextrose/Sodium Chloride (D5-0.9%Ns) 1,000 mls @ 30 mls/hr IV .Q24H JUVENTINO Stop: 06/28/16 03:44 Last Admin: 05/01/16 18:59 Dose: 30 mls/hr Sodium Chloride (Hypertonic 3%) 500 mls @ 20 mls/hr IV X1 ONE Stop: 05/02/16 15:15 Last Admin: 05/01/16 17:02 Dose: 20 mls/hr Lorazepam (Ativan) 1 mg IVP Q4H PRN; Protocol PRN Reason: Anxiety/Agitation Stop: 06/28/16 03:53 Megestrol Acetate (Megace) 400 mg PO DAILY JUVENTINO PRN Reason: Protocol Stop: 07/01/16 08:59 Last Admin: 05/02/16 13:01 Dose: 400 mg Morphine Sulfate (Morphine) 2 mg IVP Q4H PRN PRN Reason: Severe Pain Stop: 06/28/16 03:53 Ondansetron HCl (Zofran) 4 mg IVP Q6H PRN PRN Reason: Nausea / Vomiting Stop: 06/28/16 03:53 Last Admin: 05/02/16 13:12 Dose: 4 mg Potassium Chloride (Klor-Con) 20 meq PO DAILY JUVENTINO Stop: 06/30/16 08:59 Last Admin: 05/02/16 08:56 Dose: Not Given Promethazine HCl/Dextromethorphan (Phenergan Dm 6.25/15mg-5 Ml) 5 ml PO Q6HR PRN PRN Reason: Cough Stop: 06/29/16 20:43 Last Admin: 04/30/16 21:16 Dose: 5 ml General: Alert, No acute distress HEENT: Atraumatic, Mucous membr. moist/pink Neck: Supple, +2 carotid pulse wo bruit Cardiovascular: Regular rate, Normal S1, Normal S2 Lungs: Clear to auscultation Abdomen: Bowel sounds, Soft Extremities: no Edema Neurological: Sensation intact Skin: no Rash Psych/Mental Status: Mood NL Assessment/Plan - Assessment Assessment: hyponatremia & hypokalemia 2nd Na loss from N/V & furosemide htn GB stone mild anemia - Plan Plan: replace Na, K, Mg start megace, mvi f/u electrolytes
[2016-05-02] MEDS ORDERED: Mag Sulfate 2gm/50mL Premix 2 GM/50 ML BAG IV ONE ×2 (15:15→19:05)
[2016-05-02] MEDS: Multivitamin w/ Minerals Tab PO SCH (16:10)
--- NOTE | 2016-05-02 19:30 | General Progress Note ---
Subjective - Review of Systems Service Date: 05/02/16 Subjective: FEELS BETTER. LUPILLO SOME ORAL DIET. NO N/V. Objective - Results Result Diagrams: 05/01/16 06:00 05/02/16 06:18 Recent Labs: Laboratory Last Values WBC 5.1 Th/cmm (4.8-10.8) 05/01/16 06:00 RBC 3.47 Mil/cmm (3.80-5.20) L 05/01/16 06:00 Hgb 10.9 gm/dL (11.7-16.1) L 05/01/16 06:00 Hct 31.3 % (35.0-45.0) L 05/01/16 06:00 MCV 90.1 fl (81-100) 05/01/16 06:00 MCH 31.3 pg (27.0-31.0) H 05/01/16 06:00 MCHC Differential 34.8 pg (28.0-36.0) 05/01/16 06:00 RDW 11.2 % (11.5-20.0) L 05/01/16 06:00 Plt Count 188 Th/cmm (150-400) 05/01/16 06:00 MPV 7.7 fl 05/01/16 06:00 Neutrophils % 39.9 % (40.0-80.0) L 04/30/16 05:50 Band Neutrophils % 1 % (0-10) 05/01/16 06:00 Lymphocytes % 40.2 % (20.0-50.0) 04/30/16 05:50 Monocytes % 13.7 % (2.0-10.0) H 04/30/16 05:50 Eosinophils % 5.4 % (0.0-5.0) H 04/30/16 05:50 Basophils % 0.8 % (0.0-2.0) 04/30/16 05:50 Neutrophils (Manual) 45 % (40-80) 05/01/16 06:00 Lymphocytes 36 % (20-50) 05/01/16 06:00 Monocytes 8 % (2-10) 05/01/16 06:00 Eosinophils 7 % (0-5) H 05/01/16 06:00 Basophils 2 % (0-3) 05/01/16 06:00 Atypical Lymphocytes 1 % 05/01/16 06:00 Platelet Estimate ADEQUATE (NORMAL) 05/01/16 06:00 Platelet Morphology GIANT PLATELETS SEEN (NORMAL) 05/01/16 06:00 RBC Morph Micro Appear NORMAL (NORMAL) 05/01/16 06:00 PT 10.9 SECONDS (9.5-11.5) 05/01/16 06:00 INR 1.09 (0.5-1.4) 05/01/16 06:00 PTT (Actin FS) 31.4 SECONDS (26.0-38.0) 05/01/16 06:00 Sodium 126 mEq/L (136-145) L 05/02/16 06:18 Potassium 3.7 mEq/L (3.5-5.1) 05/02/16 06:18 Chloride 99 mEq/L (98-107) 05/02/16 06:18 Carbon Dioxide 24.1 mEq/L (21.0-31.0) 05/02/16 06:18 Anion Gap 6.6 (7.0-16.0) L 05/02/16 06:18 BUN 5 mg/dL (7-25) L 05/02/16 06:18 Creatinine 0.5 mg/dL (0.6-1.2) L 05/02/16 06:18 Est GFR ( Amer) TNP 05/02/16 06:18 Est GFR (Non-Af Amer) TNP 05/02/16 06:18 BUN/Creatinine Ratio 10.0 05/02/16 06:18 Glucose 86 mg/dL (70-105) 05/02/16 06:18 Uric Acid 3.0 mg/dL (2.3-6.6) 04/30/16 05:50 Calcium 8.4 mg/dL (8.6-10.3) L 05/02/16 06:18 Magnesium 1.4 mg/dL (1.9-2.7) L 05/02/16 06:18 Total Bilirubin 1.0 mg/dL (0.3-1.0) 04/29/16 03:50 AST 17 U/L (13-39) 04/29/16 03:50 ALT 7 U/L (7-52) 04/29/16 03:50 Alkaline Phosphatase 97 U/L (34-104) 04/29/16 03:50 Total Protein 6.2 gm/dL (6.0-8.3) 04/29/16 03:50 Albumin 3.2 gm/dL (3.7-5.3) L 04/29/16 03:50 Globulin 3.0 gm/dL 04/29/16 03:50 Albumin/Globulin Ratio 1.1 (1.0-1.8) 04/29/16 03:50 Amylase 51 U/L (29-103) 04/29/16 20:00 Lipase 32 U/L (11-82) 04/29/16 20:00 Urine Source CATH 05/01/16 21:10 Urine Color YELLOW 05/01/16 21:10 Urine Clarity CLEAR (CLEAR) 05/01/16 21:10 Urine pH 7.0 05/01/16 21:10 Ur Specific [place] 1.020 (1.005-1.030) 05/01/16 21:10 Urine Protein NEGATIVE mg/dL (NEGATIVE) 05/01/16 21:10 Urine Glucose (UA) NEGATIVE mg/dL (NEGATIVE) 05/01/16 21:10 Urine Ketones NEGATIVE mg/dL (NEGATIVE) 05/01/16 21:10 Urine Blood NEGATIVE (NEGATIVE) 05/01/16 21:10 Urine Nitrate NEGATIVE (NEGATIVE) 05/01/16 21:10 Urine Bilirubin NEGATIVE (NEGATIVE) 05/01/16 21:10 Urine Urobilinogen 4.0 E.U./dL (0.2 - 1.0) H 05/01/16 21:10 Ur Leukocyte Esterase NEGATIVE (NEGATIVE) 05/01/16 21:10 Urine RBC 0-2 /hpf (0-5) 05/01/16 21:10 Urine WBC 0-2 /hpf (0-5) 05/01/16 21:10 Ur Epithelial Cells OCCASIONAL /lpf (FEW) 05/01/16 21:10 Urine Bacteria OCCASIONAL /hpf (NONE SEEN) 05/01/16 21:10 Urine Osmolality 580 mOsmol/kg 04/30/16 20:30 Ur Random Sodium 190 mmol/L 05/01/16 21:10 - Physical Exam Vitals and I&O: Vital Signs Temp 98.1 F 05/02/16 12:00 Pulse 78 05/02/16 12:00 Resp 18 05/02/16 12:00 BP 132/69 05/02/16 12:00 Pulse Ox 98 05/02/16 12:00 Intake & Output 05/02/16 05/02/16 05/03/16 06:59 18:59 06:59 Intake Total 250 Balance 250 Intake: Oral 250 Other: # Voids 2 Stool Characteristics Soft Active Medications: Current Medications Acetaminophen (Tylenol 650mg Supp) 650 mg RC Q6H PRN PRN Reason: Mild Pain/Headache/T above 101 Stop: 06/28/16 03:53 Famotidine (Pepcid) 20 mg IVP Q12HR JUVENTINO Stop: 06/28/16 08:59 Last Admin: 05/02/16 08:56 Dose: 20 mg Dextrose/Sodium Chloride (D5-0.9%Ns) 1,000 mls @ 30 mls/hr IV .Q24H JUVENTINO Stop: 06/28/16 03:44 Last Admin: 05/01/16 18:59 Dose: 30 mls/hr Magnesium Sulfate (Magnesium Sulfate Premix) 2 gm in 50 mls @ 25 mls/hr IV X1 ONE Stop: 05/02/16 21:04 Lorazepam (Ativan) 1 mg IVP Q4H PRN; Protocol PRN Reason: Anxiety/Agitation Stop: 06/28/16 03:53 Megestrol Acetate (Megace) 400 mg PO DAILY JUVENTINO PRN Reason: Protocol Stop: 07/01/16 08:59 Last Admin: 05/02/16 13:01 Dose: 400 mg Morphine Sulfate (Morphine) 2 mg IVP Q4H PRN PRN Reason: Severe Pain Stop: 06/28/16 03:53 Ondansetron HCl (Zofran) 4 mg IVP Q6H PRN PRN Reason: Nausea / Vomiting Stop: 06/28/16 03:53 Last Admin: 05/02/16 13:12 Dose: 4 mg Potassium Chloride (Klor-Con) 20 meq PO DAILY JUVENTINO Stop: 06/30/16 08:59 Last Admin: 05/02/16 08:56 Dose: Not Given Promethazine HCl/Dextromethorphan (Phenergan Dm 6.25/15mg-5 Ml) 5 ml PO Q6HR PRN PRN Reason: Cough Stop: 06/29/16 20:43 Last Admin: 04/30/16 21:16 Dose: 5 ml General: Alert HEENT: Atraumatic Neck: Supple Cardiovascular: Regular rate Lungs: Clear to auscultation Abdomen: Bowel sounds, Soft, no Tender Assessment/Plan - Assessment Assessment: 1. N/V - BETTER. EGD SHOWED GASTRITIS. 2. GS, DOUBT SYMPTOMATIC. 3. MILD ANEMIA. 4. HYPONATREMIA, BETTER. - Plan Plan: 1. DIET LUPILLO. 2. PROTONIX. 3. ANTIEMETICS NEEDED. 4. CONSIDER MEGACE IF APPETITE REMAINS POOR.
--- NOTE | 2016-05-02 22:23 | Progress Notes ---
SUBJECTIVE: This is an 85-year-old female followed for nausea and vomiting on admission and gallstones. At this time, she has no reported abdominal pain. She is resting comfortably. Several family members are at bedside. Reportedly, she has very little appetite, but no nausea or vomiting. PHYSICAL EXAMINATION: VITAL SIGNS: Afebrile, 99.2 T-max. HEENT AND NECK: Within normal limits. LUNGS: Clear to auscultation bilaterally. There are no crackles, rales, rhonchi, or wheezing. CARDIOVASCULAR: Regular rhythm and rate. No murmurs, rubs or gallops. S1 and S2 normal. ABDOMEN: Soft, nontender, and nondistended. NEUROVASCULAR AND EXTREMITIES: Otherwise normal. LABORATORY DATA: White blood cell count is 5.1 today. H and H is 10.9 and 31.3, platelet count is 188,000. Sodium level is 122, potassium 3.8, anion gap is 3.8, BUN and creatinine 6 and 0.5. The patient underwent GI procedure by Dr. Merchant today. EGD with biopsy. Post-procedure diagnoses include mild gastritis, status post biopsy and TAMMY test, normal esophagus and normal duodenum. IMPRESSION AND PLAN: The patient is stable at this time. She has not had any further nausea or vomiting, but has a poor appetite according to family. She denies any abdominal pain. She has a benign abdominal examination. Her white blood cell count is normal. She has anemia of chronic disease. She still has hyponatremia and electrolyte abnormalities which need to be corrected. Nephrology is on the case, monitor electrolytes closely. We have encouraged her to tolerate p.o. diet, but she has poor appetite at this time. She has had bowel movements in the last 2 days without incident. Doubt issue with cholelithiasis as a cause for any of these symptoms that she has at this time. JOB# [id number] [facility]ITAL[facility]in[facility]
--- NOTE | 2016-05-02 22:34 | Progress Notes ---
SUBJECTIVE: The patient is awake and alert. The patient is on IV fluids. The patient underwent EGD today. OBJECTIVE: VITAL SIGNS: Temperature is 97.2, pulse 71, blood pressure seen, respiration 18, and O2 saturation 100% on room air. CARDIOVASCULAR: S1 and S2. RESPIRATORY: Clear. ABDOMEN: Soft. Positive bowel sounds. LABORATORY DATA: Hematology: WBC is 5.1, hemoglobin 10.9, 7% basophils. PT 10.9, INR 1.09, PTT 31.4. Chemistry: Sodium 122, chloride 100, bicarb 24, anion gap 1.8, BUN 8, glucose is 101, calcium is 8.8. Microbiology: MRSA screen from 04/29/2016 is negative. Blood culture from 04/29/2016 shows no growth. ASSESSMENT: 1. Intractable nausea and vomiting (resolved). 2. Cholelithiasis. 3. Hypertension. 4. Hyperlipidemia. 5. Cardiomegaly. 6. Congestive heart failure. 7. Anemia. 8. Hyponatremia. 9. Hypokalemia. PLAN: Continue current medication. Obtain labs in a.m. Further recommendation per consult. EGD result shows mild gastritis. JOB# [id number] [facility]
[2016-05-03 07:22] LABS: % BASOPHILS 0.6 % (0.0-2.0); % EOSINOPHILS 3.2 % (0.0-5.0); % LYMPHOCYTES 33.3 % (20.0-50.0); % MONOCYTES 13.9 % (2.0-10.0); HEMATOCRIT 32.3 % (35.0-45.0); HEMOGLOBIN 11.3 gm/dL (11.7-16.1); MEAN CELL VOLUME 88.3 fl (81-100); MEAN CORPUSCULAR HGB CONC 35.1 pg (28.0-36.0); MEAN PLATELET VOLUME 7.7 fl; PLATELET COUNT 198 Th/cmm (150-400); RED BLOOD COUNT 3.65 Mil/cmm (3.80-5.20); RED CELL DISTRIBUTION WIDTH 11.3 % (11.5-20.0)
[2016-05-03 07:56] LABS: ANION GAP 5.5 (7.0-16.0); BUN - UREA NITROGEN 7 mg/dL (7-25); CALCIUM SERUM 8.4 mg/dL (8.6-10.3); CARBON DIOXIDE 25.8 mEq/L (21.0-31.0); CHLORIDE 100 mEq/L (98-107); CREATININE - SERUM 0.5 mg/dL (0.6-1.2); GLUCOSE 92 mg/dL (70-105); PHOSPHOROUS 3.6 mg/dL (2.5-5.0); POTASSIUM SERUM 3.3 mEq/L (3.5-5.1); SODIUM SERUM 128 mEq/L (136-145)
[2016-05-03] MEDS: Potassium Chloride 20 mEq ER Tab PO SCH ×2 (09:14→17:39)
[2016-05-03] MEDS: Multivitamin w/ Minerals Tab PO SCH (09:14)
--- NOTE | 2016-05-03 11:48 | General Progress Note ---
Subjective - Review of Systems Service Date: 05/03/16 Subjective: alert, poor appetite, no N/V. diarrhea Objective - Results Result Diagrams: 05/03/16 06:15 05/03/16 06:15 Recent Labs: Laboratory Last Values WBC 6.0 Th/cmm (4.8-10.8) 05/03/16 06:15 RBC 3.65 Mil/cmm (3.80-5.20) L 05/03/16 06:15 Hgb 11.3 gm/dL (11.7-16.1) L 05/03/16 06:15 Hct 32.3 % (35.0-45.0) L 05/03/16 06:15 MCV 88.3 fl (81-100) 05/03/16 06:15 MCH 31.0 pg (27.0-31.0) 05/03/16 06:15 MCHC Differential 35.1 pg (28.0-36.0) 05/03/16 06:15 RDW 11.3 % (11.5-20.0) L 05/03/16 06:15 Plt Count 198 Th/cmm (150-400) 05/03/16 06:15 MPV 7.7 fl 05/03/16 06:15 Neutrophils % 49.0 % (40.0-80.0) 05/03/16 06:15 Band Neutrophils % 1 % (0-10) 05/01/16 06:00 Lymphocytes % 33.3 % (20.0-50.0) 05/03/16 06:15 Monocytes % 13.9 % (2.0-10.0) H 05/03/16 06:15 Eosinophils % 3.2 % (0.0-5.0) 05/03/16 06:15 Basophils % 0.6 % (0.0-2.0) 05/03/16 06:15 Neutrophils (Manual) 45 % (40-80) 05/01/16 06:00 Lymphocytes 36 % (20-50) 05/01/16 06:00 Monocytes 8 % (2-10) 05/01/16 06:00 Eosinophils 7 % (0-5) H 05/01/16 06:00 Basophils 2 % (0-3) 05/01/16 06:00 Atypical Lymphocytes 1 % 05/01/16 06:00 Platelet Estimate ADEQUATE (NORMAL) 05/01/16 06:00 Platelet Morphology GIANT PLATELETS SEEN (NORMAL) 05/01/16 06:00 RBC Morph Micro Appear NORMAL (NORMAL) 05/01/16 06:00 PT 10.9 SECONDS (9.5-11.5) 05/01/16 06:00 INR 1.09 (0.5-1.4) 05/01/16 06:00 PTT (Actin FS) 31.4 SECONDS (26.0-38.0) 05/01/16 06:00 Sodium 128 mEq/L (136-145) L 05/03/16 06:15 Potassium 3.3 mEq/L (3.5-5.1) L 05/03/16 06:15 Chloride 100 mEq/L (98-107) 05/03/16 06:15 Carbon Dioxide 25.8 mEq/L (21.0-31.0) 05/03/16 06:15 Anion Gap 5.5 (7.0-16.0) L 05/03/16 06:15 BUN 7 mg/dL (7-25) 05/03/16 06:15 Creatinine 0.5 mg/dL (0.6-1.2) L 05/03/16 06:15 Est GFR ( Amer) TNP 05/03/16 06:15 Est GFR (Non-Af Amer) TNP 05/03/16 06:15 BUN/Creatinine Ratio 14.0 05/03/16 06:15 Glucose 92 mg/dL (70-105) 05/03/16 06:15 Uric Acid 3.0 mg/dL (2.3-6.6) 04/30/16 05:50 Calcium 8.4 mg/dL (8.6-10.3) L 05/03/16 06:15 Phosphorus 3.6 mg/dL (2.5-5.0) 05/03/16 06:15 Magnesium 2.1 mg/dL (1.9-2.7) 05/03/16 06:15 Total Bilirubin 1.0 mg/dL (0.3-1.0) 04/29/16 03:50 AST 17 U/L (13-39) 04/29/16 03:50 ALT 7 U/L (7-52) 04/29/16 03:50 Alkaline Phosphatase 97 U/L (34-104) 04/29/16 03:50 Total Protein 6.2 gm/dL (6.0-8.3) 04/29/16 03:50 Albumin 3.2 gm/dL (3.7-5.3) L 04/29/16 03:50 Globulin 3.0 gm/dL 04/29/16 03:50 Albumin/Globulin Ratio 1.1 (1.0-1.8) 04/29/16 03:50 Amylase 51 U/L (29-103) 04/29/16 20:00 Lipase 32 U/L (11-82) 04/29/16 20:00 Urine Source CATH 05/01/16 21:10 Urine Color YELLOW 05/01/16 21:10 Urine Clarity CLEAR (CLEAR) 05/01/16 21:10 Urine pH 7.0 05/01/16 21:10 Ur Specific [place] 1.020 (1.005-1.030) 05/01/16 21:10 Urine Protein NEGATIVE mg/dL (NEGATIVE) 05/01/16 21:10 Urine Glucose (UA) NEGATIVE mg/dL (NEGATIVE) 05/01/16 21:10 Urine Ketones NEGATIVE mg/dL (NEGATIVE) 05/01/16 21:10 Urine Blood NEGATIVE (NEGATIVE) 05/01/16 21:10 Urine Nitrate NEGATIVE (NEGATIVE) 05/01/16 21:10 Urine Bilirubin NEGATIVE (NEGATIVE) 05/01/16 21:10 Urine Urobilinogen 4.0 E.U./dL (0.2 - 1.0) H 05/01/16 21:10 Ur Leukocyte Esterase NEGATIVE (NEGATIVE) 05/01/16 21:10 Urine RBC 0-2 /hpf (0-5) 05/01/16 21:10 Urine WBC 0-2 /hpf (0-5) 05/01/16 21:10 Ur Epithelial Cells OCCASIONAL /lpf (FEW) 05/01/16 21:10 Urine Bacteria OCCASIONAL /hpf (NONE SEEN) 05/01/16 21:10 Urine Osmolality 580 mOsmol/kg 04/30/16 20:30 Ur Random Sodium 190 mmol/L 05/01/16 21:10 Helicobacter pylori Ab NEGATIVE (NEGATIVE) 05/01/16 12:50 - Physical Exam Vitals and I&O: Vital Signs Temp 97.3 F 05/03/16 04:00 Pulse 81 05/03/16 04:00 Resp 17 05/03/16 04:00 BP 145/82 05/03/16 04:00 Pulse Ox 98 05/03/16 04:00 Intake & Output 05/02/16 05/03/16 05/03/16 18:59 06:59 18:59 Intake Total 450 Balance 450 Intake: Oral 450 Active Medications: Current Medications Acetaminophen (Tylenol 650mg Supp) 650 mg RC Q6H PRN PRN Reason: Mild Pain/Headache/T above 101 Stop: 06/28/16 03:53 Famotidine (Pepcid) 20 mg IVP Q12HR [facility] Stop: 06/28/16 08:59 Last Admin: 05/03/16 09:14 Dose: 20 mg Dextrose/Sodium Chloride (D5-0.9%Ns) 1,000 mls @ 30 mls/hr IV .Q24H [facility] Stop: 06/28/16 03:44 Last Admin: 05/01/16 18:59 Dose: 30 mls/hr Lorazepam (Ativan) 1 mg IVP Q4H PRN; Protocol PRN Reason: Anxiety/Agitation Stop: 06/28/16 03:53 Megestrol Acetate (Megace) 400 mg PO DAILY [facility] PRN Reason: Protocol Stop: 07/01/16 08:59 Last Admin: 05/03/16 09:14 Dose: 400 mg Morphine Sulfate (Morphine) 2 mg IVP Q4H PRN PRN Reason: Severe Pain Stop: 06/28/16 03:53 Ondansetron HCl (Zofran) 4 mg IVP Q6H PRN PRN Reason: Nausea / Vomiting Stop: 06/28/16 03:53 Last Admin: 05/02/16 20:05 Dose: 4 mg Potassium Chloride (Klor-Con) 20 meq PO DAILY [facility] Stop: 06/30/16 08:59 Last Admin: 05/03/16 09:14 Dose: 20 meq Promethazine HCl/Dextromethorphan (Phenergan Dm 6.25/15mg-5 Ml) 5 ml PO Q6HR PRN PRN Reason: Cough Stop: 06/29/16 20:43 Last Admin: 04/30/16 21:16 Dose: 5 ml General: Alert, No acute distress HEENT: Atraumatic, Mucous membr. moist/pink Neck: Supple, +2 carotid pulse wo bruit Cardiovascular: Regular rate, Normal S1, Normal S2 Lungs: Clear to auscultation Abdomen: Bowel sounds, Soft Extremities: no Edema Neurological: Sensation intact Skin: no Rash Psych/Mental Status: Mental status NL, Mood NL Assessment/Plan - Assessment Assessment: hyponatremia & hypokalemia 2nd Na loss from N/V & furosemide htn GB stone mild anemia - Plan Plan: replace Na, K, Mg start megace, mvi f/u electrolytes start 24 urine Na, Cl, K f/u tsh, cortisol, aldosterone
[2016-05-03] MEDS ORDERED: D5-0.9%NS 1,000 ML IV SCH (12:45)
--- NOTE | 2016-05-04 01:12 | Progress Notes ---
SUBJECTIVE: The patient is awake and alert. The patient is on IV fluids. The patient is receiving inpatient rehab therapy. The patient denies any nausea or vomiting. Per family, the patient still has some poor appetite. OBJECTIVE: VITAL SIGNS: Temperature is 98.1, pulse 78, blood pressure 122/69, respiratory rate 18, and O2 of 78% on room air. CARDIOVASCULAR: S1 and S2. RESPIRATORY: Clear. GASTROINTESTINAL: Soft and nontender. Positive bowel sounds. LABORATORY DATA: Chemistry: Sodium is 122, potassium 3.2, chloride 100, bicarb 23, anion gap 1.8, BUN 8, creatinine 0.5. GFR is unavailable. Glucose is 101. Calcium is 8.8. Magnesium is 1.4. Urine osmolality is 580. Urine sodium is 190. Microbiology: MRSA screen from 04/29/2016 is negative. Blood cultures from 04/29/2016 shows no growth. Radiology: No new radiology test. EGD performed on 05/01/2016 shows mild gastritis. H. pylori test from 05/02/2016 is negative. Pathology shows chronic gastritis. IMPRESSION: 1. Intractable nausea and vomiting (resolved). 2. Cholelithiasis. 3. Hypertension. 4. Hyperlipidemia. 5. Cardiomegaly. 6. Congestive heart failure. 7. Hyponatremia (improved). 8. Hypokalemia. 9. Hypomagnesemia. 10. Hypercalcemia. PLAN: We will correct for potassium, magnesium deficiency. Continue with IV fluids to correct hyponatremia. Further recommendations per consults. JOB# [id number] [facility]
[2016-05-04 06:59] LABS: % BASOPHILS 0.5 % (0.0-2.0); % EOSINOPHILS 3.5 % (0.0-5.0); % LYMPHOCYTES 34.5 % (20.0-50.0); % MONOCYTES 12.6 % (2.0-10.0); % NEUTROPHILS 48.9 % (40.0-80.0); HEMOGLOBIN 10.8 gm/dL (11.7-16.1); MEAN CELL VOLUME 88.2 fl (81-100); MEAN CORPUSCULAR HEMOGLOBIN 30.8 pg (27.0-31.0); MEAN PLATELET VOLUME 7.5 fl; NEUTROPHILE ABSOLUTE 2.9 Th/cmm (1.8-8.0); PLATELET COUNT 204 Th/cmm (150-400); RED BLOOD COUNT 3.52 Mil/cmm (3.80-5.20); RED CELL DISTRIBUTION WIDTH 11.5 % (11.5-20.0); WHITE BLOOD COUNT 5.8 Th/cmm (4.8-10.8)
[2016-05-04 07:03] LABS: ALKALINE PHOSPHATASE 83 U/L (34-104); ANION GAP 4.2 (7.0-16.0); BILIRUBIN,TOTAL 0.8 mg/dL (0.3-1.0); BUN - UREA NITROGEN 8 mg/dL (7-25); CALCIUM SERUM 8.3 mg/dL (8.6-10.3); CARBON DIOXIDE 22.4 mEq/L (21.0-31.0); CHLORIDE 106 mEq/L (98-107); CREATININE - SERUM 0.5 mg/dL (0.6-1.2); GLUCOSE 93 mg/dL (70-105); POTASSIUM SERUM 3.6 mEq/L (3.5-5.1); SGOT 13 U/L (13-39); SGPT/ALT 6 U/L (7-52); SODIUM SERUM 129 mEq/L (136-145)
[2016-05-04] MEDS ORDERED: Mag Sulfate 2gm/50mL Premix 2 GM/50 ML BAG IV ONE (07:50)
[2016-05-04] MEDS: Potassium Chloride 20 mEq ER Tab PO SCH ×2 (09:44→16:05)
[2016-05-04] MEDS: Multivitamin w/ Minerals Tab PO SCH (09:45)
[2016-05-04] MEDS ORDERED: Pantoprazole 40 mg EC Tab PO SCH (10:45)
--- NOTE | 2016-05-04 12:32 | General Progress Note ---
Subjective - Review of Systems Service Date: 05/04/16 Subjective: alert, poor appetite, no N/V. diarrhea Objective - Results Result Diagrams: 05/04/16 06:35 05/04/16 06:35 Recent Labs: Laboratory Last Values WBC 5.8 Th/cmm (4.8-10.8) 05/04/16 06:35 RBC 3.52 Mil/cmm (3.80-5.20) L 05/04/16 06:35 Hgb 10.8 gm/dL (11.7-16.1) L 05/04/16 06:35 Hct 31.0 % (35.0-45.0) L 05/04/16 06:35 MCV 88.2 fl (81-100) 05/04/16 06:35 MCH 30.8 pg (27.0-31.0) 05/04/16 06:35 MCHC Differential 35.0 pg (28.0-36.0) 05/04/16 06:35 RDW 11.5 % (11.5-20.0) 05/04/16 06:35 Plt Count 204 Th/cmm (150-400) 05/04/16 06:35 MPV 7.5 fl 05/04/16 06:35 Neutrophils % 48.9 % (40.0-80.0) 05/04/16 06:35 Band Neutrophils % 1 % (0-10) 05/01/16 06:00 Lymphocytes % 34.5 % (20.0-50.0) 05/04/16 06:35 Monocytes % 12.6 % (2.0-10.0) H 05/04/16 06:35 Eosinophils % 3.5 % (0.0-5.0) 05/04/16 06:35 Basophils % 0.5 % (0.0-2.0) 05/04/16 06:35 Neutrophils (Manual) 45 % (40-80) 05/01/16 06:00 Lymphocytes 36 % (20-50) 05/01/16 06:00 Monocytes 8 % (2-10) 05/01/16 06:00 Eosinophils 7 % (0-5) H 05/01/16 06:00 Basophils 2 % (0-3) 05/01/16 06:00 Atypical Lymphocytes 1 % 05/01/16 06:00 Platelet Estimate ADEQUATE (NORMAL) 05/01/16 06:00 Platelet Morphology GIANT PLATELETS SEEN (NORMAL) 05/01/16 06:00 RBC Morph Micro Appear NORMAL (NORMAL) 05/01/16 06:00 PT 10.9 SECONDS (9.5-11.5) 05/01/16 06:00 INR 1.09 (0.5-1.4) 05/01/16 06:00 PTT (Actin FS) 31.4 SECONDS (26.0-38.0) 05/01/16 06:00 Sodium 129 mEq/L (136-145) L 05/04/16 06:35 Potassium 3.6 mEq/L (3.5-5.1) 05/04/16 06:35 Chloride 106 mEq/L (98-107) 05/04/16 06:35 Carbon Dioxide 22.4 mEq/L (21.0-31.0) 05/04/16 06:35 Anion Gap 4.2 (7.0-16.0) L 05/04/16 06:35 BUN 8 mg/dL (7-25) 05/04/16 06:35 Creatinine 0.5 mg/dL (0.6-1.2) L 05/04/16 06:35 Est GFR ( Amer) TNP 05/04/16 06:35 Est GFR (Non-Af Amer) TNP 05/04/16 06:35 BUN/Creatinine Ratio 16.0 05/04/16 06:35 Glucose 93 mg/dL (70-105) 05/04/16 06:35 Plasma/Ser Osmolality 259 mOsmol/kg (280-301) L 05/02/16 06:18 Uric Acid 3.0 mg/dL (2.3-6.6) 04/30/16 05:50 Calcium 8.3 mg/dL (8.6-10.3) L 05/04/16 06:35 Phosphorus 3.6 mg/dL (2.5-5.0) 05/03/16 06:15 Magnesium 1.8 mg/dL (1.9-2.7) L 05/04/16 06:35 Total Bilirubin 0.8 mg/dL (0.3-1.0) 05/04/16 06:35 AST 13 U/L (13-39) 05/04/16 06:35 ALT 6 U/L (7-52) L 05/04/16 06:35 Alkaline Phosphatase 83 U/L (34-104) 05/04/16 06:35 Total Protein 5.6 gm/dL (6.0-8.3) L 05/04/16 06:35 Albumin 2.8 gm/dL (3.7-5.3) L 05/04/16 06:35 Globulin 2.8 gm/dL 05/04/16 06:35 Albumin/Globulin Ratio 1.0 (1.0-1.8) 05/04/16 06:35 Amylase 51 U/L (29-103) 04/29/16 20:00 Lipase 32 U/L (11-82) 04/29/16 20:00 TSH 1.11 uIU/ml (0.34-5.60) 05/03/16 06:15 Urine Source CATH 05/01/16 21:10 Urine Color YELLOW 05/01/16 21:10 Urine Clarity CLEAR (CLEAR) 05/01/16 21:10 Urine pH 7.0 05/01/16 21:10 Ur Specific [place] 1.020 (1.005-1.030) 05/01/16 21:10 Urine Protein NEGATIVE mg/dL (NEGATIVE) 05/01/16 21:10 Urine Glucose (UA) NEGATIVE mg/dL (NEGATIVE) 05/01/16 21:10 Urine Ketones NEGATIVE mg/dL (NEGATIVE) 05/01/16 21:10 Urine Blood NEGATIVE (NEGATIVE) 05/01/16 21:10 Urine Nitrate NEGATIVE (NEGATIVE) 05/01/16 21:10 Urine Bilirubin NEGATIVE (NEGATIVE) 05/01/16 21:10 Urine Urobilinogen 4.0 E.U./dL (0.2 - 1.0) H 05/01/16 21:10 Ur Leukocyte Esterase NEGATIVE (NEGATIVE) 05/01/16 21:10 Urine RBC 0-2 /hpf (0-5) 05/01/16 21:10 Urine WBC 0-2 /hpf (0-5) 05/01/16 21:10 Ur Epithelial Cells OCCASIONAL /lpf (FEW) 05/01/16 21:10 Urine Bacteria OCCASIONAL /hpf (NONE SEEN) 05/01/16 21:10 Urine Osmolality 153 mOsmol/kg 05/01/16 21:10 Ur Random Sodium 190 mmol/L 05/01/16 21:10 Helicobacter pylori Ab NEGATIVE (NEGATIVE) 05/01/16 12:50 - Physical Exam Vitals and I&O: Vital Signs Temp 97.7 F 05/04/16 04:00 Pulse 80 05/04/16 04:00 Resp 18 05/04/16 04:00 BP 141/79 05/04/16 04:00 Pulse Ox 95 05/04/16 04:00 Intake & Output 05/03/16 05/04/16 05/04/16 18:59 06:59 18:59 Intake Total 620 Output Total 300 Balance 320 Intake: Oral 620 Output: Urine 300 Other: # Voids 3 # Bowel Movements 0 Stool Characteristics Formed Active Medications: Current Medications Acetaminophen (Tylenol 650mg Supp) 650 mg RC Q6H PRN PRN Reason: Mild Pain/Headache/T above 101 Stop: 06/28/16 03:53 Famotidine (Pepcid) 20 mg IVP Q12HR [facility] Stop: 06/28/16 08:59 Last Admin: 05/04/16 09:50 Dose: 20 mg Dextrose/Sodium Chloride (D5-0.9%Ns) 1,000 mls @ 70 mls/hr IV .[id number] [facility] Stop: 06/28/16 12:44 Last Admin: 05/03/16 17:39 Dose: 70 mls/hr Lorazepam (Ativan) 1 mg IVP Q4H PRN; Protocol PRN Reason: Anxiety/Agitation Stop: 06/28/16 03:53 Megestrol Acetate (Megace) 400 mg PO DAILY [facility] PRN Reason: Protocol Stop: 07/01/16 08:59 Last Admin: 05/04/16 09:44 Dose: 400 mg Mirtazapine (Remeron) 15 mg PO HS [facility] PRN Reason: Protocol Stop: 07/02/16 20:59 Last Admin: 05/03/16 21:30 Dose: 15 mg Morphine Sulfate (Morphine) 2 mg IVP Q4H PRN PRN Reason: Severe Pain Stop: 06/28/16 03:53 Ondansetron HCl (Zofran) 4 mg IV Q6H PRN PRN Reason: Nausea / Vomiting Stop: 07/02/16 18:56 Pantoprazole Sodium (Protonix) 40 mg PO QDAC [facility] Stop: 07/03/16 10:44 Potassium Chloride (Klor-Con) 20 meq PO BID [facility] Stop: 07/02/16 16:59 Last Admin: 05/04/16 09:44 Dose: 20 meq Promethazine HCl/Dextromethorphan (Phenergan Dm 6.25/15mg-5 Ml) 5 ml PO Q6HR PRN PRN Reason: Cough Stop: 06/29/16 20:43 Last Admin: 04/30/16 21:16 Dose: 5 ml Sodium Chloride (Nacl Tab) 1 gm PO BID [facility] Stop: 07/02/16 16:59 Last Admin: 05/04/16 09:45 Dose: 1 gm General: Alert, Cooperative HEENT: Atraumatic, Mucous membr. moist/pink Neck: Supple, +2 carotid pulse wo bruit Cardiovascular: Regular rate, Normal S1, Normal S2 Lungs: Clear to auscultation Abdomen: Bowel sounds, Soft Extremities: no Edema Neurological: Sensation intact Skin: no Rash Psych/Mental Status: Mental status NL, Mood NL Assessment/Plan - Assessment Assessment: hyponatremia & hypokalemia 2nd Na loss from N/V & furosemide htn GB stone mild anemia - Plan Plan: replace Na, K, Mg start megace, mvi f/u electrolytes start 24 urine Na, Cl, K f/u tsh, cortisol, aldosterone pt. 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
[2016-05-04 15:56] LABS: URINE COLLECTION TIME 24 hours
[2016-05-04 15:57] LABS: SODIUM 24HR URINE 194 mmol/24H (40-220)
--- NOTE | 2016-05-05 00:47 | Progress Notes ---
SUBJECTIVE: The patient is awake and alert. The patient is having nausea and vomiting. The patient has abdominal pain. The patient already in workup for hyponatremia. The patient is on IV fluids. OBJECTIVE: VITAL SIGNS: Temperature 97.3, blood pressure 145/82, respiratory rate 17, and O2 sat is 98% on room air. CARDIOVASCULAR: S1 and S2. RESPIRATORY: Clear. GASTROINTESTINAL: Soft. Tender. Nondistended. Positive bowel sounds. LABORATORY DATA: Hematology: WBC 6.0, hemoglobin 11.3, hematocrit 32.3, platelet count of 198,000, 13% monocytes. Chemistry: Sodium 128, potassium 3.3, chloride 100, bicarb 25, anion gap of 5.5, BUN 7, creatinine 0.5, glucose 92, calcium 8.4, phosphorus 3.6, magnesium 2.1. TSH 1.11. Microbiology: MRSA screen from 04/29/2016 is negative. Blood cultures from 04/29/2016 is negative. ASSESSMENT: 1. Intractable nausea and vomiting. 2. Cholelithiasis. 3. Hypertension. 4. Cardiomegaly. 5. Congestive heart failure. 6. Gastritis. 7. Cholelithiasis. 8. Hyponatremia. 9. Hypokalemia. PLAN: Continue current medications. Obtain labs in a.m. The patient's discharge is on hold due to the patient's nausea, vomiting, abdominal pain, and continued hyponatremia. Further recommendations per consults. Thank you much. JOB# [id number]
--- NOTE | 2016-05-05 05:25 | Progress Notes ---
SUBJECTIVE: The patient is awake and alert. The patient denies any abdominal pain. The patient denies any nausea or vomiting. The patient is on IV fluids. The patient is undergoing 24-hour urine collection. OBJECTIVE: VITAL SIGNS: Temperature 97.7, pulse 80, blood pressure 141/79, respiratory rate 18, O2 saturation 95% on room air. CARDIOVASCULAR: S1, S2. RESPIRATORY: Clear. GASTROINTESTINAL: Soft. Positive bowel sounds. LABORATORY DATA: Hematology: WBC is 5.8, hemoglobin 10.8, hematocrit 31.0, platelet count 204, 12% monocytes. Chemistry: Sodium is 129, potassium 3.6, chloride 106, bicarbonate 22, anion gap 4.2, BUN 8, creatinine 0.5, glucose 93, calcium 8.3, magnesium is 1.8. Total bilirubin is 0.8, AST 13, ALT 6, alkaline phosphatase 83. Total protein 5.6, albumin 2.8. Microbiology: No new microbiology results. ASSESSMENT: 1. Intractable nausea and vomiting (resolved). 2. Cholelithiasis. 3. Hypertension. 4. Hyperlipidemia. 5. Cardiomegaly. 6. Congestive heart failure. 7. Hyponatremia (improved). 8. Hypocalcemia. 9. Hypomagnesemia. 11. Protein-calorie malnutrition (severe). PLAN: Continue current management and treatment. Obtain labs in a.m. We will correct magnesium deficiency. Further recommendations per consults. JOB# [id number] [facility]
--- NOTE | 2016-05-16 23:55 | Discharge Summary ---
DISCHARGE DIAGNOSES: 1. Intractable nausea and vomiting (resolved). 2. Cholelithiasis. 3. Hypertension. 4. Hyperlipidemia. 5. Cardiomegaly. 6. Congestive heart failure. 7. Hyponatremia (improved). HOSPITAL COURSE: The patient is an 85-year-old female who was transferred to [facility] from [facility]. The patient was admitted with diagnoses of intractable nausea and vomiting, cholelithiasis, hypertension, hyperlipidemia, cardiomegaly, CHF, anemia, ____. The patient was admitted to telemetry unit. General surgery consultation was obtained from Dr. Rudolph, who stated the patient is poor surgical candidate for elective laparoscopic cholecystectomy. Cardiology consultation was obtained from Dr. Jermain Davalos, who recommended for the patient's hypertension to continue home medication. The patient has dyslipidemia, cardiomegaly, and CHF (both systolic as well as diastolic). To continue home medications. Cardiomegaly ____ disorder. The patient ____ echocardiogram. The patient ____ Lasix and lisinopril. Nephrology consultation was obtained from Dr. Trotter who recommended the patient ____ normal saline IV fluids. Discontinue Lasix and lisinopril. ____ electrolytes. GI consultation was obtained from Dr. Merchant who recommended the patient for EGD once nausea and vomiting improved. The patient was ordered for HIDA scan. Result of HIDA scan performed 04/30/2016, showed normal examination. The patient underwent EGD on 05/01/2016, which showed mild gastritis, normal esophagus, and normal duodenum. Results of CLOtest and biopsy from EGD showed chronic gastritis and ____ for H. pylori. After improvement of the patient's nausea and vomiting and the patient's improvement of electrolytes, the patient was discharged on 05/04/2016. The patient is to follow up with the PCP. JOB# [id number] [facility]
== END 2016-05-04 16:00 | disposition home or self-care (01) | DRG 444 ==
LOC: MSI 02:13 → TELE 04:25 → UNDODISIN 05-02 18:31
PROVIDERS: ADMIT Preventive Medicine Preventive Medicine/Occupational Environmental Medicine; ATTEND Preventive Medicine Preventive Medicine/Occupational Environmental Medicine
PROC: 0DB68ZX Excision of Stomach, Via Natural or Artificial Opening Endoscopic, Diagnostic (ICD-10-PCS; principal; 2016-05-01)
DX: K80.20 Calculus of gallbladder without cholecystitis without obstruction (principal); E43 Unspecified severe protein-calorie malnutrition; I42.9 Cardiomyopathy, unspecified; R64 Cachexia; E87.1 Hypo-osmolality and hyponatremia; I11.0 Hypertensive heart disease with heart failure; I50.9 Heart failure, unspecified; D64.9 Anemia, unspecified; E86.0 Dehydration; K29.70 Gastritis, unspecified, without bleeding; E78.5 Hyperlipidemia, unspecified; E87.6 Hypokalemia; Z66 Do not resuscitate; R62.7 Adult failure to thrive; E83.42 Hypomagnesemia; E83.52 Hypercalcemia; R73.9 Hyperglycemia, unspecified; Z88.8 Allergy status to other drugs, medicaments and biological substances; Z68.20 Body mass index [BMI] 20.0-20.9, adult
CPT/HCPCS: 36415-UA; 71010-TC; 76705-TC; 78226-TC; 80048-TC; 80053-TC; 81001-TC; 81050-TC; 82088-90; 82150-TC; 82533-90; 83690-TC; 83735-TC; 83930-90; 83935-90; 84100-TC; 84133-TC; 84300-TC; 84443-TC; 84445-90; 84550-TC; 85007-TC; 85025-TC; 85027-TC; 85610-TC; 87338-TC; 93005; A9537; J1940; J2001; J2405; J3475; J3480; J3490; J7042; J7131; Z7610